=== PATIENT | female | born 1985 | race Caucasian/White ===

== ENCOUNTER 2023-05-23 18:17 | Emergency (ER) | payer MEDICAID, OTHER ==
[2023-05-23 18:42] VITALS: BP 132/89; O2SAT 100
[2023-05-23] MEDS ORDERED: TETANUS/DIPHTHERIA/PERTUSSIS 0.5 ML SYRINGE IM ONE (18:43)
--- NOTE | 2023-05-23 18:45 | ED Physician Documentation ---
PD HPI UPPER EXT INJURY - Stated complaint Stated Complaint: L HAND LAC - Chief complaint Chief Complaint: Laceration - History obtained from History obtained from: Patient - History of Present Illness Location: Left (38-year-old woman with unknown tetanus status cut her left dominant index finger with pruning adelina yesterday around 3 PM. She had persistent pain and put Steri-Strips on them which are coming off.) PD PAST MEDICAL HISTORY - Allergies Allergies/Adverse Reactions: Allergies Allergy/AdvReac Type Severity Reaction Status Date / Time No Known Drug Allergies Allergy Verified 05/23/23 18:35 PD ED PE NORMAL - Vitals Vital signs reviewed: Yes - General General: Alert and oriented X 3, No acute distress - Extremities Extremities: Other (There is a near complete fingertip avulsion of the left index finger without active bleeding or infection.) - Neuro Neuro: Alert and oriented X 3, Normal speech Results - Vitals Vitals: Vital Signs - 24 hr 05/23/23 18:31 Temperature 36.5 C Heart Rate 73 Respiratory 16 Rate Blood Pressure 132/89 H O2 Saturation 100 Oxygen O2 Source Room air PD Medical Decision Making - ED course ED course: The wound is too old to close primarily. It was cleansed and then a bulky dressing was placed and she was counseled on wound care. Departure - Departure Disposition: 01 Home, Self Care Clinical Impression: Fingertip amputation Condition: Good Record reviewed to determine appropriate education?: Yes Instructions: ED Laceration Amputation Finger Tip Open Tx Comments: You were seen tonight for a near complete fingertip avulsion. It is too late to suture it. You can keep the current dressing on until Friday at which point soap and water, bacitracin ointment and a fingertip dressing with the splints are appropriate. You will probably have to do this for a week or 2 and it may be quite some time until it is completely healed and not numb anymore. Return if worse. Note for your records that he received a Tdap shot today.
== END 2023-05-23 19:00 | disposition home or self-care (01) ==
LOC: ED 18:17
DX: S68.121A Partial traumatic metacarpophalangeal amputation of left index finger, initial encounter (principal); W27.1XXA Contact with garden tool, initial encounter
CPT/HCPCS: 90471; 99283